=== PATIENT | female | born 1970 | race Caucasian/White ===

== ENCOUNTER 2019-01-04 19:33 | Emergency (ER) | payer BC ==
[~2019-01-04] VITALS: Ht 170.2 cm; Wt 84.8 kg
[2019-01-04 19:46] VITALS: Ht 170.2 cm; Wt 84.8 kg
[2019-01-05 01:21] VITALS: BP 145/73
== END 2019-01-05 01:21 | disposition home or self-care (01) ==
LOC: ED 19:33
DX: S61.412A Laceration without foreign body of left hand, initial encounter (principal); F41.9 Anxiety disorder, unspecified; F32.9 Major depressive disorder, single episode, unspecified; Z88.0 Allergy status to penicillin; W01.0XXA Fall on same level from slipping, tripping and stumbling without subsequent striking against object, initial encounter; Y93.89 Activity, other specified; Y92.89 Other specified places as the place of occurrence of the external cause; Y99.8 Other external cause status
CPT/HCPCS: 90715; A4570; J2001; Q0092